=== PATIENT | male | born 1960 | race Caucasian/White ===

== ENCOUNTER 2018-05-12 19:02 | Emergency (ER) | payer MEDICAID, MEDICARE | END 2018-05-12 22:50 | disposition left against medical advice (07) | LOC: ER 19:02 | DX: Z53.21 Procedure and treatment not carried out due to patient leaving prior to being seen by health care provider (principal) ==

== ENCOUNTER 2019-11-23 07:43 | Emergency (ER) | payer MEDICARE ==
[2019-11-23 09:47] LABS: HEMOGLOBIN 16.2 g/dL (13.5-17.0); MEAN CORPUSCULAR HEMOGLOBIN 32.8 pg (27.0-33.4); MEAN CORPUSCULAR HGB CONC 34.5 g/dL (32.0-36.0); MEAN CORPUSCULAR VOLUME 95 fl (80-97); PLATELET COUNT 234 10^3/uL (150-450); RED BLOOD COUNT 4.95 10^6/uL (4.35-5.55); RED CELL DISTRIBUTION WIDTH 13.1 % (11.5-14.0); WHITE BLOOD COUNT 6.3 10^3/uL (4.0-10.5)
--- NOTE | 2019-11-23 09:52 | RADIOLOGY REPORT (SQ) ---
EXAM DESCRIPTION: CHEST SINGLE VIEW IMAGES COMPLETED DATE/TIME: 11/23/2019 9:21 am REASON FOR STUDY: chest pain COMPARISON: None. NUMBER OF VIEWS: One view. TECHNIQUE: Single frontal radiographic view of the chest acquired. LIMITATIONS: None. FINDINGS: LUNGS AND PLEURA: No opacities, masses or pneumothorax. No pleural effusion. MEDIASTINUM AND HILAR STRUCTURES: No masses. Contour normal. HEART AND VASCULAR STRUCTURES: Heart normal in size. Normal vasculature. BONES: No acute findings. HARDWARE: None in the chest. OTHER: No other significant finding. IMPRESSION: NO SIGNIFICANT RADIOGRAPHIC FINDING IN THE CHEST. TECHNICAL DOCUMENTATION: JOB ID: [id number] 2010 [employer]- All Rights Reserved Reading location - IP/workstation name: [email or web address]
[2019-11-23 10:06] LABS: APPEARANCE,URINE CLEAR; BILIRUBIN,URINE NEGATIVE (NEGATIVE); COLOR,URINE YELLOW; GLUCOSE, URINE NEGATIVE (NEGATIVE); KETONES,URINE NEGATIVE (NEGATIVE); LEUKOCYTE ESTERASE,URINE NEGATIVE (NEGATIVE); NITRITE,URINE NEGATIVE (NEGATIVE); PROTEIN,URINE NEGATIVE (NEGATIVE); URINE SPECIFIC GRAVITY 1.016; UROBILINOGEN,URINE NEGATIVE mg/dL (<2.0)
[2019-11-23 10:07] LABS: ALBUMIN 4.7 g/dL (3.5-5.0); ALKALINE PHOSPHATASE 64 U/L (38-126); ANION GAP 8 (5-19); ASPARTATE AMINO TRANSFERASE 30 U/L (17-59); BILIRUBIN,DIRECT 0.3 mg/dL (0.0-0.4); BLOOD UREA NITROGEN 19 mg/dL (7-20); CALCIUM 9.3 mg/dL (8.4-10.2); CARBON DIOXIDE 28 mmol/L (22-30); CHLORIDE 104 mmol/L (98-107); CREATINE KINASE 184 U/L (55-170); GLUCOSE 96 mg/dL (75-110); POTASSIUM 4.6 mmol/L (3.6-5.0)
[2019-11-23 10:15] LABS: ABSOLUTE LYMPHOCYTES# (MANUAL) 1.7 10^3/uL (0.5-4.7); ABSOLUTE MONOCYTES # (MANUAL) 0.4 10^3/uL (0.1-1.4); BASOPHILS % (MANUAL) 0 % (0-2); EOSINOPHILS % (MANUAL) 1 % (0-6); LYMPHOCYTES % (MANUAL) 20 % (13-45); MONOCYTES % (MANUAL) 7 % (3-13); RBC MORPHOLOGY COMMENT NORMO-CYTIC/CHROMIC; SEGMENTED NEUTROPHILS % (MAN) 65 % (42-78); TOTAL CELLS COUNTED 100
[2019-11-23 10:16] LABS: PLATELET COMMENT ADEQUATE
[2019-11-23 10:37] LABS: CREATINE KINASE MB 2.34 ng/mL (<4.55)
[2019-11-23 10:55] LABS: TROPONIN I < 0.012 ng/mL
--- NOTE | 2019-11-23 11:18 | ER Document Report ---
Entered by RADHA APPIAH SCRIBE 11/23/19 1029 Acting as scribe for:VINITA HOUSTON MD ED General - General Chief Complaint: Cold Symptoms Stated Complaint: CHEST PAIN Time Seen by Provider: 11/23/19 10:10 Primary Care Provider: ELKIN RAMSAY MD [Primary Care Provider] - Follow up as needed Mode of Arrival: Ambulatory Information source: Patient Notes: This 59-year-old male patient presents to the emergency department today with complaints of a 3-day history of reproducible left-sided chest pain. Patient's pain is reproducible with breathing. He states that he has had this happen off and on for the last 18 years and he "always gets pneumonia after it happens". Patient describes his chest pain as a stabbing sensation. He does not have a cough, fever, or chills. - Related Data Allergies/Adverse Reactions: No Known Allergies Allergy (Verified 11/23/19 09:06) Past Medical History - General Information source: Patient - Social History Smoking Status: Former Smoker Cigarette use (# per day): No - quit in 1984 Frequency of alcohol use: None Drug Abuse: None Occupation: disable from right ankle surgery Lives with: Family Family History: Reviewed & Not Pertinent Pulmonary Medical History: Reports: Hx Pneumonia - x3 Infectious Medical History: Reports: Other - Viral Meningitis x3 Past Surgical History: Reports: Hx Appendectomy, Hx Orthopedic Surgery - right ankle surgery. right shoulder surgery., Hx Tonsillectomy - Immunizations Hx Diphtheria, Pertussis, Tetanus Vaccination: No Hx Pneumococcal Vaccination: 02/28/06 Review of Systems - Review of Systems Constitutional: No symptoms reported EENT: No symptoms reported Cardiovascular: See HPI, Chest pain Respiratory: See HPI, Hurts to breathe Gastrointestinal: No symptoms reported Genitourinary: No symptoms reported Male Genitourinary: No symptoms reported Musculoskeletal: No symptoms reported Skin: No symptoms reported Hematologic/Lymphatic: No symptoms reported Neurological/Psychological: No symptoms reported -: Yes All other systems reviewed and negative Physical Exam - Vital signs Vitals: Temp Pulse Resp BP Pulse Ox 98.5 F 57 L 18 141/90 H 100 11/23/19 08:00 11/23/19 08:00 11/23/19 08:00 11/23/19 08:00 11/23/19 08:00 - Notes Notes: Physical Exam: General: Alert, appears well. HEENT: Normocephalic. Atraumatic. PERRL. Extraocular movements intact. Oropharynx clear. Neck: Supple. Non-tender. Respiratory: No respiratory distress. Clear and equal breath sounds bilaterally. Cardiovascular: Regular rate and rhythm. Abdominal: Normal Inspection. Non-tender. No distension. Normal Bowel Sounds. Back: No gross abnormalities. Extremities: Moves all four extremities. Upper extremities: Normal inspection. Normal ROM. Lower extremities: Normal inspection. No edema. Normal ROM. Neurological: Normal cognition. AAOx4. Normal speech. Psychological: Normal affect. Normal Mood. Skin: Warm. Dry. Normal color. Course - Re-evaluation Re-evalutation: 11/23/19 11:58 Patient CBC is normal with no suggestion of an infectious process. ESR is 2, CRP is 7.4 which effectively excludes an inflammatory process. Chest x-ray is normal. - Vital Signs Vital signs: Temp Pulse Resp BP Pulse Ox 98.5 F 57 L 20 143/71 H 97 11/23/19 08:00 11/23/19 08:00 11/23/19 11:01 11/23/19 11:01 11/23/19 11:01 - Laboratory Result Diagrams: 11/23/19 09:25 11/23/19 09:25 Laboratory results interpreted by me: 11/23/19 09:25 Creatine Kinase 184 H - Diagnostic Test Radiology reviewed: Image reviewed, Reports reviewed - Chest x-ray is unremarkable. - EKG Interpretation by [facility] EKG shows normal: Sinus rhythm, [place], Intervals, QRS Complexes. abnormal: ST-T Waves - Borderline anterolateral T abnormalities Rate: Normal - 64 Rhythm: NSR When compared to previous EKG there are: Previous EKG unavailable Discharge - Discharge Clinical Impression: Chest pain, pleuritic, Cough Condition: Stable Disposition: HOME, SELF-CARE Additional Instructions: Chest Pain of Unclear Cause The exact cause of your chest pain isn't clear. Fortunately, there is no evidence of a dangerous medical condition. Further testing may be required to find the source of the pain. Most often, we find that this pain is coming from the chest wall -- the muscles or rib joints in the chest. But chest pain can come from the lung and lung lining, the esophagus, the heart valves or heart lining, and even the stomach or gallbladder. Rest. Eat lightly until the pain is gone. We may prescribe medicine for pain and inflammation. You should call the physician immediately if the pain radiates to the shoulder, jaw or arms; if you start to run a fever or develop a cough; or if you develop shortness of breath, or other new or alarming symptoms. Your chest x-ray today was clear. Your white blood cell count was in the low normal range. ESR and CRP which are serum markers for inflammation were both in the low normal range. Your chest discomfort is probably related to the muscles between the ribs involved in breathing, which is why it hurts to take a deep breath or cough. Try using a cough syrup like Delsym DM to help prevent coughing. Follow-up with your primary care provider if not improving. RETURN TO THE EMERGENCY ROOM IF ANY NEW OR WORSENING SYMPTOMS. Referrals: ELKIN RAMSAY MD [Primary Care Provider] - Follow up as needed I personally performed the services described in the documentation, reviewed and edited the documentation which was dictated to the scribe in my presence, and it accurately records my words and actions.
[2019-11-23 12:35] VITALS: BP 137/98
--- NOTE | 2019-11-23 21:24 | EKG REPORT ---
SEVERITY:- BORDERLINE ECG - SINUS RHYTHM BORDERLINE T ABNORMALITIES, ANT-LAT LEADS : Confirmed by: Nora Carroll MD 23-Nov-2019 21:23:31
== END 2019-11-23 12:35 | disposition home or self-care (01) ==
LOC: ER 07:43
DX: R07.81 Pleurodynia (principal); R05 Cough
CPT/HCPCS: 36415; 71045; 80053; 81001; 82550; 82553; 84484; 85025; 85379; 85652; 86140; 93005; 93010; 99285